=== PATIENT | male | born 1950 | race Caucasian/White ===

== ENCOUNTER → 2017-12-03 15:45 | Outpatient (POV) | payer OTHER, SELFPAY | PROVIDERS: Visit Provider Dermatology | DX: Z00.00 Encounter for general adult medical examination without abnormal findings (principal) ==

== ENCOUNTER → 2018-07-14 12:08 | Outpatient (CLI) | payer BC, SELFPAY ==
--- NOTE | 2018-07-14 12:13 | XR_ITS ---
XR knee RT 4V Ordering Physician: Janet Cortes MD Patient Age: 67 years: Male HISTORY: ITS.REASON: 4v weight bearing Technique: Weightbearing AP, lateral and [place] views were performed as well as oblique. Findings: No previous studies for comparison The right knee appears intact with no fracture. Joint spaces well-maintained. There is some mild irregularity at the superior lateral margin of patella accounting for some small stippled bone features here.. There is also some old minimal spurring at the tibial tubercle at the patellar tendon insertion possible old barbi slaughters Patellofemoral relationships appear normal on the sunrise view. . IMPRESSION: No acute findings Joint spaces well-maintained. No joint effusion. Minor comments in text
== END ==
PROVIDERS: PCP Family Medicine; Visit Provider Orthopaedic Surgery
DX: M25.561 Pain in right knee (principal)
CPT/HCPCS: 73564

== ENCOUNTER → 2019-03-08 16:01 | Outpatient (POV) | payer BC, SELFPAY | PROVIDERS: Visit Provider Dermatology | DX: Z00.00 Encounter for general adult medical examination without abnormal findings (principal) ==

== ENCOUNTER → 2019-12-26 10:33 | Outpatient (CLI) | payer BC, SELFPAY ==
[2019-12-26 23:54] LABS: Covid-19 Nasal PCR Sendout Lex DETECTED
--- NOTE | 2019-12-27 06:51 | PC.NURSE ---
Dr. Houston notified of positive COVID 19 result.
== END ==
PROVIDERS: Visit Provider Internal Medicine Adolescent Medicine
DX: Z03.818 Encounter for observation for suspected exposure to other biological agents ruled out (principal)
CPT/HCPCS: U0003

== ENCOUNTER → 2022-05-22 10:58 | Outpatient (CLI) | payer MEDICARE, SELFPAY ==
--- NOTE | 2022-05-22 11:03 | XR_ITS ---
FINAL REPORT TECHNIQUE: Chest PA & Lateral CLINICAL HISTORY: gynecomastia left FINDINGS: 2 views of the chest were performed. The heart size is normal. The mediastinum is within normal limits. There is no acute cardiopulmonary process. There are no pleural effusions. There is no pneumothorax. The bony thorax appears intact. IMPRESSION: No acute cardiopulmonary process. Reviewed, Interpreted and Dictated by Sarwat Carlton MD Transcribed by Ishaan Medina Authenticated and [facility]
== END ==
PROVIDERS: PCP Family Medicine; Visit Provider Family Medicine
DX: N62 Hypertrophy of breast (principal)
CPT/HCPCS: 71046